=== PATIENT | female | born 1990 | race Caucasian/White ===

== ENCOUNTER 2020-09-28 15:01 | Outpatient (CLI) | payer BC, SELFPAY | END 2020-09-28 15:02 | disposition home or self-care (01) | LOC: ANHCOVIDVC 15:01 | PROVIDERS: PCP Family Medicine | DX: Z23 Encounter for immunization (principal) | CPT/HCPCS: 0001A; 91300 ==

== ENCOUNTER 2020-10-19 15:14 | Outpatient (CLI) | payer BC, SELFPAY | END 2020-10-19 15:15 | disposition home or self-care (01) | LOC: ANHCOVIDVC 15:14 | PROVIDERS: PCP Family Medicine | DX: Z23 Encounter for immunization (principal) | CPT/HCPCS: 0002A; 91300 ==

== ENCOUNTER 2021-08-25 08:27 | Outpatient (CLI) | payer OTHER, SELFPAY ==
[2021-08-25 09:18] LABS: Basophils Absolute Auto 0.1 K/mm3 (0.0-0.1); Basophils Percent Auto 0.5 % (0.2-1.2); Eosinophils Absolute Auto 0.2 K/mm3 (0-0.3); Eosinophils Percent Auto 2.3 % (0-4.4); Hematocrit 44.4 % (37.0-47.0); Hemoglobin 14.1 g/dL (12.0-15.0); Immature Granulocyte Absolute 0.03 K/mm3 (0.00-0.031); Immature Granulocyte Percent A 0.3 % (0-0.5); Lymphocytes Absolute Auto 2.43 K/mm3 (0.9-3.2); Lymphocytes Percent Auto 25.3 % (18.3-44.2); Mean Corpuscular HGB Conc 31.8 g/dl (32-36); Mean Corpuscular Volume 91.2 fl (80-100); Mean Platelet Volume 9.3 fl (7.4-10.4); Monocytes Absolute Auto 0.6 K/mm3 (0.1-0.6); Monocytes Percent Auto 6.2 % (2.6-8.5); Neutrophils Absolute Auto 6.3 K/mm3 (1.3-6.7); Neutrophils Percent Auto 65.4 % (45.5-73.1); Platelet Count Result 305 k/mm3 (150-375); Red Blood Count 4.87 M/mm3 (4.2-5.4); Red Cell Distribution Width 12.2 % (11.5-14.5); White Blood Count 9.6 K/mm3 (4.5-10.0)
[2021-08-25 09:54] LABS: Alanine Aminotransferase 20 U/L (4-35); Albumin Level 4.3 g/dL (3.5-5.1); Alkaline Phosphatase 74 U/L (38-126); Anion Gap 7 mmol/L (8-16); Aspartate Amino Transferase 27 U/L (14-36); Bilirubin,Total 0.3 mg/dL (0.2-1.3); Blood Urea Nitrogen 12 mg/dL (7-17); Calcium 9.1 mg/dL (8.4-10.2); Carbon Dioxide 28 mmol/L (22-30); Chloride 105 mmol/L (98-107); Estimated Glomerular Filt Rate > 60; Glucose 104 mg/dL (65-110); Potassium 4.2 mmol/L (3.4-5.0); Sodium 140 mmol/L (137-145)
[2021-08-27 13:16] LABS: NIL 0.01 IU/mL; Quantiferon TB Plus, 1T NEGATIVE (NEGATIVE)
== END 2021-08-25 08:28 | disposition home or self-care (01) ==
PROVIDERS: PCP Family Medicine
DX: L73.2 Hidradenitis suppurativa (principal); Z79.899 Other long term (current) drug therapy
CPT/HCPCS: 36415; 80053; 85025; 86480

== ENCOUNTER 2021-10-10 14:02 | Outpatient (CLI) | payer OTHER, SELFPAY ==
[2021-10-10 15:58] LABS: Appearance Urine Cloudy (Clear); Bilirubin Urine Negative (Negative); Blood Urine Negative (Negative); Color Urine Yellow (Yellow); Glucose Urine UA Negative (Negative); Ketones Urine Negative (Negative); Leukocyte Esterase Ur Trace LEU/UL (NEGATIVE); Nitrate Urine Negative (Negative); Protein Urine Negative (Negative); Specific Grav Ur >= 1.030 (1.001-1.035); Urobilinogen Urine 0.2 mg/dL (<2.0); pH Urine 5.5 (5.0-9.0)
[2021-10-10 16:01] LABS: Bacteria Urine Trace /hpf; Squamous Epithelial Cell Urine Many /hpf (Few); WBC Urine 51-75 /hpf (0-3)
[2021-10-10 16:15] LABS: Add Urine Microscopic? YES
== END 2021-10-10 14:03 | disposition home or self-care (01) ==
LOC: ANHLAB 14:04
PROVIDERS: PCP Family Medicine; Visit Provider Family Medicine
DX: R30.0 Dysuria (principal)
CPT/HCPCS: 81001; 87077; 87086; 87186

== ENCOUNTER 2022-06-16 12:41 | Outpatient (CLI) | payer OTHER, SELFPAY ==
[2022-06-16 14:13] LABS: Add Urine Microscopic? YES; Appearance Urine Slightly Cloudy (Clear); Bilirubin Urine Negative (Negative); Blood Urine Trace-Intact (Negative); Color Urine Yellow (Yellow); Glucose Urine UA Negative (Negative); Ketones Urine Negative (Negative); Leukocyte Esterase Ur Trace LEU/UL (Negative); Nitrate Urine Negative (Negative); Protein Urine Trace mg/dL (Negative); Specific Grav Ur >= 1.030 (1.001-1.035); Urobilinogen Urine 0.2 mg/dL (<2.0)
[2022-06-16 14:22] LABS: Bacteria Urine Trace /hpf; Mucus Urine Rare /lpf; Squamous Epithelial Cell Urine Many /hpf (Few); WBC Urine 51-75 /hpf
== END 2022-06-16 12:42 | disposition home or self-care (01) ==
LOC: ANHLAB 12:44
PROVIDERS: PCP Family Medicine; Visit Provider Physician Assistant
DX: R30.0 Dysuria (principal)
CPT/HCPCS: 81001; 87077; 87086; 87186

== ENCOUNTER 2022-08-01 09:03 | Outpatient (CLI) | payer OTHER, SELFPAY ==
[2022-08-01 12:24] LABS: Alanine Aminotransferase 37 U/L (6-35); Albumin Level 4.3 g/dL (3.5-5.1); Alkaline Phosphatase 76 U/L (38-126); Anion Gap 9 mmol/L (8-16); Aspartate Amino Transferase 46 U/L (14-36); Bilirubin,Total 0.5 mg/dL (0.2-1.3); Blood Urea Nitrogen 14 mg/dL (7-17); Carbon Dioxide 25 mmol/L (22-30); Chloride 103 mmol/L (98-107); Estimated Glomerular Filt Rate > 60; Glucose 88 mg/dL (65-110); Sodium 137 mmol/L (137-145)
[2022-08-01 12:31] LABS: Hemoglobin A1C 5.5 % (<5.7)
[2022-08-01 12:49] LABS: Hepatitis B Surface Antigen Negative (Negative)
[2022-08-01 12:59] LABS: HIV 1/2 Ab P24 Ag Result Negative (Negative)
[2022-08-01 13:07] LABS: Hepatitis C Virus Antibody Negative (Negative)
[2022-08-02 09:06] LABS: Rapid Plasma Reagin Non-Reactive (NonReactive)
[2022-08-05 04:25] LABS: FSH 7.2 mIU/mL (***); Progesterone 6.1 ng/mL (***)
[2022-08-07 11:29] LABS: Testosterone Total 53 ng/dL (2-45)
== END 2022-08-01 09:04 | disposition home or self-care (01) ==
LOC: ANHLAB 09:05
PROVIDERS: PCP Family Medicine; Visit Provider Obstetrics & Gynecology
DX: E28.2 Polycystic ovarian syndrome (principal); Z30.09 Encounter for other general counseling and advice on contraception
CPT/HCPCS: 36415; 80053; 83001; 83002; 83036; 83525; 84144; 84403; 84436; 84443; 86592; 86703; 86803; 87340; G0432

== ENCOUNTER 2022-08-04 16:11 | Outpatient (CLI) | payer OTHER, SELFPAY ==
--- NOTE | ~2022-08-04 | US_ITS ---
EXAMINATION: US pelvic complete w TV DATE: 08/04/2022 17:08 INDICATION: Pelvic and perineal pain. TECHNIQUE: Multiple transabdominal and transvaginal sonographic images of the pelvis were obtained. COMPARISON: None. FINDINGS: TRANSABDOMINAL ULTRASOUND: The uterus measures 6.4 x 3.6 x 3.7 cm. There is no free fluid in the pelvis. TRANSVAGINAL ULTRASOUND: The endometrial complex measures 7 mm in thickness. There is a 3.3 cm intramural fibroid in the fundu s. The right ovary measures 2.4 x 2.4 x 1.9 cm. The left ovary measures 3.1 x 3.1 x 2.5 cm. There is normal vascular flow in the ovaries. IMPRESSION: 1. Uterine fibroid. Reviewed, dictated and finalized at location A. NISATIONAL PSYCHOLOGIST IMPRESSION: 1. Uterine fibroid.
== END 2022-08-04 16:12 | disposition home or self-care (01) ==
LOC: ANHIMG 16:15
PROVIDERS: PCP Family Medicine; Visit Provider Obstetrics & Gynecology
DX: R10.2 Pelvic and perineal pain (principal); D25.9 Leiomyoma of uterus, unspecified
CPT/HCPCS: 76830; 76856

== ENCOUNTER 2022-08-07 15:40 | Outpatient (CLI) | payer OTHER, SELFPAY ==
--- NOTE | ~2022-08-07 | US_ITS ---
EXAMINATION: US abdomen complete DATE: 08/07/2022 16:05 INDICATION: Elevated liver enzymes. TECHNIQUE: Multiple grayscale and Doppler ultrasound images of the abdomen were obtained. COMPARISON: None available. FINDINGS: The visualized portions of the pancreas are normal. The liver is normal with normal echogen icity and echotexture. No surface nodularity. Normal hepatopetal flow in the main portal vein. The ga llbladder is normal with no abnormal wall thickening, pericholecystic fluid or stones. The common daniel e duct measures 5 mm. There was no sonographic Roldan sign. The visualized portions of the aorta and inferior vena cava are normal. The right kidney measures 10.3 x 4.7 x 4.6 cm. The left kidney measures 10.6 x 5.3 x 4.7. The kidneys demonstrate normal parenchymal echogenicity. There is no hydronephrosis. The spleen is normal in heriberto earance and measures 11.0 cm. IMPRESSION: Normal abdominal ultrasound findings. Reviewed, dictated and finalized at location K. [employer]
== END 2022-08-07 15:41 | disposition home or self-care (01) ==
LOC: ANHIMG 15:43
PROVIDERS: PCP Family Medicine; Visit Provider Physician Assistant
DX: R79.89 Other specified abnormal findings of blood chemistry (principal)
CPT/HCPCS: 76700

== ENCOUNTER 2022-08-09 09:30 | Outpatient (CLI) | payer OTHER, SELFPAY ==
[2022-08-10 12:21] LABS: White Blood Count 10.4 K/mm3 (4.5-10.0)
[2022-08-10 12:22] LABS: Hematocrit 44.6 % (37.0-47.0); Hemoglobin 14.7 g/dL (12.0-15.0); Platelet Count Result 295 k/mm3 (150-375); Red Blood Count 5.07 M/mm3 (4.2-5.4); Red Cell Distribution Width 12.7 % (11.5-14.5)
[2022-08-10 12:23] LABS: Mean Platelet Volume 9.7 fl (7.4-10.4)
[2022-08-10 12:58] LABS: Alanine Aminotransferase 28 U/L (6-35); Albumin Level 4.2 g/dL (3.5-5.1); Alkaline Phosphatase 64 U/L (38-126); Anion Gap 7 mmol/L (8-16); Aspartate Amino Transferase 27 U/L (14-36); Bilirubin,Total 0.6 mg/dL (0.2-1.3); Blood Urea Nitrogen 12 mg/dL (7-17); Carbon Dioxide 27 mmol/L (22-30); Chloride 106 mmol/L (98-107); Cholesterol 212 mg/dL (0-200); Estimated Glomerular Filt Rate > 60; Glucose 96 mg/dL (65-110); HDL Direct 30 mg/dL; Potassium 4.1 mmol/L (3.4-5.0); Sodium 140 mmol/L (137-145); Triglycerides 105 mg/dL (<150)
[2022-08-10 13:10] LABS: LDL Cholesterol Direct 142 mg/dL
[2022-08-10 13:11] LABS: Hemoglobin A1C 5.5 % (<5.7)
[2022-08-10 13:15] LABS: Free T4 Free Thyroxine 1.18 ng/mL (0.78-2.19)
== END 2022-08-10 12:15 | disposition home or self-care (01) ==
LOC: ANHLAB 08-28 10:57
PROVIDERS: PCP Family Medicine; Visit Provider Physician Assistant
DX: Z00.00 Encounter for general adult medical examination without abnormal findings (principal); R53.83 Other fatigue; E28.2 Polycystic ovarian syndrome; Z13.1 Encounter for screening for diabetes mellitus; Z13.220 Encounter for screening for lipoid disorders
CPT/HCPCS: 36415; 80053; 80061; 83036; 84439; 84443; 85027

== ENCOUNTER 2022-08-16 14:05 | Outpatient (CLI) | payer OTHER, SELFPAY ==
[2022-08-16 17:14] LABS: Hepatitis B Surface Antigen Negative (Negative)
[2022-08-16 17:31] LABS: Hepatitis C Virus Antibody Negative (Negative)
== END 2022-08-16 14:06 | disposition home or self-care (01) ==
LOC: ANHLAB 14:08
PROVIDERS: PCP Family Medicine; Visit Provider Obstetrics & Gynecology
DX: R79.89 Other specified abnormal findings of blood chemistry (principal)
CPT/HCPCS: 36415; 86803; 87340

== ENCOUNTER 2022-11-16 09:37 | Outpatient (CLI) | payer OTHER, SELFPAY ==
[2022-11-16 10:42] LABS: Add Urine Microscopic? YES; Appearance Urine Cloudy (Clear); Bacteria Urine 2+ /hpf; Bilirubin Urine Negative (Negative); Blood Urine 3+ (Negative); Color Urine Yellow (Yellow); Glucose Urine UA Negative (Negative); Ketones Urine Negative (Negative); Leukocyte Esterase Ur 3+ LEU/UL (Negative); Need Manual Microscopic Reviewed; Nitrate Urine Negative (Negative); Non Pathogenic Casts 0-2; Protein Urine 1+ mg/dL (Negative); RBC Urine >100 /hpf (0-2); Specific Grav Ur 1.014 (1.001-1.035); Squamous Epithelial Cell Urine None seen /hpf (Few); Urobilinogen Urine 0.2 mg/dL (<2.0); WBC Urine >100 /hpf; pH Urine 5.5 (5.0-9.0)
== END 2022-11-16 09:38 | disposition home or self-care (01) ==
PROVIDERS: PCP Family Medicine; Visit Provider Internal Medicine Hematology & Oncology
DX: R30.0 Dysuria (principal)
CPT/HCPCS: 81001; 87077; 87086; 87186

== ENCOUNTER 2023-04-12 08:04 | Outpatient (CLI) | payer OTHER, SELFPAY ==
[2023-04-12 08:20] LABS: Basophils Percent Auto 0.3 % (0.2-1.2); Eosinophils Absolute Auto 0.3 K/mm3 (0-0.3); Eosinophils Percent Auto 2.7 % (0-4.4); Hematocrit 45.1 % (37.0-47.0); Hemoglobin 15.1 g/dL (12.0-15.0); Immature Granulocyte Absolute 0.02 K/mm3 (0.00-0.031); Immature Granulocyte Percent A 0.2 % (0-0.5); Lymphocytes Absolute Auto 2.44 K/mm3 (0.9-3.2); Lymphocytes Percent Auto 25.5 % (18.3-44.2); Mean Corpuscular HGB Conc 33.5 g/dl (32-36); Mean Corpuscular Hemoglobin 28.9 pg (26-34); Mean Corpuscular Volume 86.4 fl (80-100); Mean Platelet Volume 9.1 fl (7.4-10.4); Monocytes Absolute Auto 0.5 K/mm3 (0.1-0.6); Monocytes Percent Auto 4.7 % (2.6-8.5); Neutrophils Absolute Auto 6.4 K/mm3 (1.3-6.7); Neutrophils Percent Auto 66.6 % (45.5-73.1); Platelet Count Result 294 k/mm3 (150-375); Red Blood Count 5.22 M/mm3 (4.2-5.4); Red Cell Distribution Width 12.4 % (11.5-14.5); White Blood Count 9.6 K/mm3 (4.5-10.0)
[2023-04-12 10:34] LABS: Alanine Aminotransferase 22 U/L (6-35); Albumin Level 4.1 g/dL (3.5-5.1); Alkaline Phosphatase 67 U/L (38-126); Anion Gap 6 mmol/L (8-16); Aspartate Amino Transferase 22 U/L (14-36); Bilirubin,Total 0.7 mg/dL (0.2-1.3); Blood Urea Nitrogen 12 mg/dL (7-17); Calcium 9.5 mg/dL (8.4-10.2); Carbon Dioxide 28 mmol/L (22-30); Chloride 102 mmol/L (98-107); Cholesterol 207 mg/dL (0-200); Estimated Glomerular Filt Rate > 60; Glucose 104 mg/dL (65-110); HDL Direct 40 mg/dL; Potassium 4.1 mmol/L (3.4-5.0); Sodium 136 mmol/L (137-145); Triglycerides 98 mg/dL (<150)
[2023-04-12 10:45] LABS: LDL Cholesterol Direct 123 mg/dL
[2023-04-12 13:05] LABS: Hemoglobin A1C 5.5 % (<5.7)
[2023-04-16 08:07] LABS: Iron 147 ug/dL (37-170)
[2023-04-16 08:16] LABS: Percent Iron Saturation 45 % (20-50)
== END 2023-04-12 08:05 | disposition home or self-care (01) ==
PROVIDERS: PCP Family Medicine; Visit Provider Internal Medicine Hematology & Oncology
DX: R53.83 Other fatigue (principal); Z83.3 Family history of diabetes mellitus; E28.2 Polycystic ovarian syndrome; E78.2 Mixed hyperlipidemia; D58.2 Other hemoglobinopathies
CPT/HCPCS: 36415; 80053; 80061; 82728; 83036; 83540; 83550; 84443; 85025

== ENCOUNTER 2023-04-23 02:46 | Day surgery (SDC) | payer OTHER, SELFPAY ==
[2023-04-18 12:03] VITALS: BMI 43.0
--- NOTE | 2023-04-18 12:09 | PC.NURSE ---
Report to the Outpatient Waiting Room, entrance under the green pavilion located off [facility], at time 0615 on date 04/23/23. Planned Procedure Time: 0815. Time changes happen often and if your time is changed the preop area will call you the afternoon before. - You and your visitor will be asked to self-screen and do not enter if you have any COVID symptoms. - A mask is optional within the hospital at this time. Patients may have clear liquids (water, carbonated beverages, clear teas, apple juice) until 3 hours prior to surgery with a maximum of 20 ounces. - No food from midnight until time of surgery Take the following medications with a SIP of water the morning of surgery: ANTIBIOTIC, VENLAFAXINE DO NOT STOP ANY OF YOUR OTHER PRESCRIPTION MEDICATIONS PRIOR TO SURGERY ?EXCEPT THE FOLLOWING Medications to discontinue per physician: N/A Date to take last dose: N/A Please no make-up, nail gambian, hairspray, perfume, deodorant, or body powder the day of surgery. No jewelry (including any body piercings) or valuables the day of surgery, leave them at home. Please take a shower or bath the night before, or the morning of, surgery with an antibacterial soap. Wear comfortable, loose fitting clothing. - Jewelry must be removed prior to entering the operating room. Rings and piercings that are not removed may be cut off. - The hospital will not accept responsibility for valuables. - Please leave all valuables, including medications, at home the day of surgery. If you are going home after surgery, a licensed dinkey driver must drive you home. - NO public transportation without another adult if you receive anesthesia. - We recommend that an adult stay with you for 24 hours following discharge. - We also recommend that you do not drive, make important decision, drink alcoholic beverages, or take any drugs that were not prescribed by your health care provider for at least 24 hours after your discharge time. Follow any additional instructions given to you from your surgeon. If you or anyone in your household have experienced Covid symptoms in the past week, please notify your surgeon or the nurse liaison at the phone number below for possible testing. Telephone instructions given to PT - CHRISTINE CAMPBELL and asked if any additional questions and then verbalized understanding. Patient advised to call surgeon office or pre surgery nurse liaison [phone] if any additional questions.
--- NOTE | 2023-04-19 08:56 | PM.HPGS ---
History of Present Illness History of Present Illness Consent: Risks, benefits, and alternatives have been discussed and questions answered. Patient agrees to proceed with procedure. Chief complaint: otitis media Narrative: Mariza Cam is a 32 year old female has a retained tube in the right ear that needs to be removed and possible placement Review of Systems Review of Systems: All systems reviewed & are unremarkable except as noted in HPI and below PMFSH Past Medical History Medical History Anxiety Cyst of ovary Depression Essential hypertension FH: diabetes mellitus Hidradenitis suppurativa IBS (irritable bowel syndrome) PCOS (polycystic ovarian syndrome) Surgical History Surgical History History of placement of ear tubes S/P removal of ovarian cyst Family History Family History Father Hypertension Diabetes mellitus Mother Hypertension Hypothyroidism Grandparent Colon cancer Skin cancer Other Cerebrovascular accident Social History Social History Social History: Caffeine- coffee Smoking status: Never smoker Second hand tobacco smoke exposure: No Alcohol intake: current Alcohol use details: RARE Substance use: current Substance use type: marijuana Other substance usage details: RARE Lack of Transportation: No Lack of Food: Never True Current Housing: I Have Housing Concerned About Future Housing: No Difficulty Paying Gas/Electric Bills: No Difficulty Paying for Meds: No Currently Unemployed: No Education: Associate Degree Difficulty w/ Childcare or Family Care: No Living arrangements: with family Gender identity (if verbalized by the patient): Female Spiritual care concerns: No Comments will remove the tube in the right ear and place a patch if necessar Meds Home Medications and Allergies Home Medications Medication Instructions Recorded Confirmed Type cephalexin 250 mg capsule 250 mg PO Q8H 10 days #30 caps 04/11/23 04/18/23 Rx sumatriptan succinate 50 mg tablet See Rx Instructions PO .COMPLEX #9 04/11/23 04/18/23 Rx (Imitrex) tabs venlafaxine 75 mg capsule,extended 75 mg PO DAILY #90 caps 04/11/23 04/18/23 Rx release 24 hr Allergies Allergy/AdvReac Type Severity Reaction Status Date / Time azithromycin [From Zithromax] Allergy Mild Rash Verified 04/18/23 12:03 levofloxacin [From Levaquin] Allergy Mild Diarrhea Verified 04/18/23 12:03 Sulfa (Sulfonamide Allergy Mild RASH Verified 04/18/23 12:03 Antibiotics) Exam Narrative: prolonged tube on the right side Assessment and Plan Assessment and plan (1) Chronic otitis media: Qualifiers: Laterality: right Code(s): H66.90 - Otitis media, unspecified, unspecified ear Status: Acute Plan has a prolonged tube in the right side for removed
--- NOTE | 2023-04-23 05:37 | WPDHPUPDATE1 ---
History and Physical Update Update Date/Time: 04/23/23 05:37 History and Physical has been reviewed, including an updated exam of the patient. There are NO changes in the patient's condition. Risks, benefits, and alternatives have been discussed and questions answered. Patient agrees to proceed with procedure.
[2023-04-23] MEDS: LACTATED RINGERS 1,000 ML 30 ML IV CONT (06:30)
[2023-04-23 07:00] VITALS: BP 152/91; PULSE 70; RESP 16; TEMP 36.4; O2SAT 99
[2023-04-23] MEDS: SCOPOLAMINE 1.5 MG PATCH TRANSDERM (07:51)
--- NOTE | 2023-04-23 07:51 | WPDANESEPPF ---
Anes - Initial Pre Proc Eval Procedure: Operation Date: 04/23/23 08:15 Proposed Procedures p Removal Right Myringotomy Tube, Right Myringoplasty - Awais Meadows MD Date/Time: 04/23/23 07:51 Surgeon: Awais Meadows MD Pre Op Diagnosis: otitis media Patient Data Age: 32 Gender: F Height: 1.61 m Weight: 111.15 kg Allergies Allergy/AdvReac Type Severity Reaction Status Date / Time azithromycin [From Zithromax] Allergy Mild Rash Verified 04/18/23 12:03 levofloxacin [From Levaquin] Allergy Mild Diarrhea Verified 04/18/23 12:03 Sulfa (Sulfonamide Allergy Mild RASH Verified 04/18/23 12:03 Antibiotics) Home Medications Medication Instructions Recorded Confirmed Type sumatriptan succinate 50 mg tablet See Rx Instructions PO .COMPLEX #9 04/11/23 04/18/23 Rx (Imitrex) tabs venlafaxine 75 mg capsule,extended 75 mg PO DAILY #90 caps 04/11/23 04/18/23 Rx release 24 hr Patient hx anesthesia problems: none Family hx anesthesia problems: none Results Review: All pre-operative results and documents have been reviewed as part of the pre-operative evaluation. [facility] Past Medical History Medical History Anxiety Cyst of ovary Depression Essential hypertension FH: diabetes mellitus Hidradenitis suppurativa IBS (irritable bowel syndrome) PCOS (polycystic ovarian syndrome) Surgical History Surgical History History of placement of ear tubes S/P removal of ovarian cyst Family History Family History Father Hypertension Diabetes mellitus Mother Hypertension Hypothyroidism Grandparent Colon cancer Skin cancer Other Cerebrovascular accident Social History Social History Social History: Caffeine- coffee Smoking status: Never smoker Second hand tobacco smoke exposure: No Alcohol intake: current Alcohol use details: RARE Substance use: current Substance use type: marijuana Other substance usage details: RARE Lack of Transportation: No Lack of Food: Never True Current Housing: I Have Housing Concerned About Future Housing: No Difficulty Paying Gas/Electric Bills: No Difficulty Paying for Meds: No Currently Unemployed: No Education: Associate Degree Difficulty w/ Childcare or Family Care: No Living arrangements: with family Gender identity (if verbalized by the patient): Female Spiritual care concerns: No Anes - Eval Final PreProcedure Day of Procedure 04/23/23 07:51 Patient weight: morbidly obese Heart: regular rate and rhythm Lungs: clear to auscultation Airway: Mallampati scale class III Neurological: alert and oriented Last oral intake: >/= 8 hours Emergent: no Anesthetic plan: proceed Anesthesia type and monitoring: general Results Review: All pre-operative results and documents have been reviewed as part of the pre-operative evaluation. Informed Consent: The patient's anesthetic plan and its attendant risks and benefits were discussed with the patient/family/POA. Questions were solicited and answers provided to the satisfaction of the patient/family/POA.
--- NOTE | 2023-04-23 07:56 | WPDHPUPDATE1 ---
History and Physical Update Update Date/Time: 04/23/23 07:56 History and Physical has been reviewed, including an updated exam of the patient. There are NO changes in the patient's condition. Risks, benefits, and alternatives have been discussed and questions answered. Patient agrees to proceed with procedure.
--- NOTE | 2023-04-23 08:22 | WPDHPUPDATE1 ---
History and Physical Update Update Date/Time: 04/23/23 08:22 History and Physical has been reviewed, including an updated exam of the patient. There are NO changes in the patient's condition. Risks, benefits, and alternatives have been discussed and questions answered. Patient agrees to proceed with procedure.
--- NOTE | 2023-04-23 08:23 | P.HP_ITS ---
History of Present Illness History of Present Illness Consent: Risks, benefits, and alternatives have been discussed and questions answered. Patient agrees to proceed with procedure. Chief complaint: otitis media Narrative: Mariza Cam is a 32 year old female COUNTS INCLUDE 234 BEDS AT THE [facility] Past Medical History Medical History Anxiety Cyst of ovary Depression Essential hypertension FH: diabetes mellitus Hidradenitis suppurativa IBS (irritable bowel syndrome) PCOS (polycystic ovarian syndrome) Surgical History Surgical History History of placement of ear tubes S/P removal of ovarian cyst Family History Family History Father Hypertension Diabetes mellitus Mother Hypertension Hypothyroidism Grandparent Colon cancer Skin cancer Other Cerebrovascular accident Social History Social History Social History: Caffeine- coffee Smoking status: Never smoker Second hand tobacco smoke exposure: No Alcohol intake: current Alcohol use details: RARE Substance use: current Substance use type: marijuana Other substance usage details: RARE Lack of Transportation: No Lack of Food: Never True Current Housing: I Have Housing Concerned About Future Housing: No Difficulty Paying Gas/Electric Bills: No Difficulty Paying for Meds: No Currently Unemployed: No Education: Associate Degree Difficulty w/ Childcare or Family Care: No Living arrangements: with family Gender identity (if verbalized by the patient): Female Spiritual care concerns: No Meds Home Medications and Allergies Home Medications Medication Instructions Recorded Confirmed Type sumatriptan succinate 50 mg tablet See Rx Instructions PO .COMPLEX #9 04/11/23 04/18/23 Rx (Imitrex) tabs venlafaxine 75 mg capsule,extended 75 mg PO DAILY #90 caps 04/11/23 04/18/23 Rx release 24 hr cephalexin 250 mg capsule 250 mg PO BID 04/23/23 04/23/23 History Allergies Allergy/AdvReac Type Severity Reaction Status Date / Time azithromycin [From Zithromax] Allergy Mild Rash Verified 04/23/23 07:52 Sulfa (Sulfonamide Allergy Mild RASH Verified 04/23/23 07:52 Antibiotics) levofloxacin [From Levaquin] AdvReac Mild Diarrhea Verified 04/23/23 08:09 Vital Signs Vital Signs - 24 hr 04/23/23 07:00 Temperature 36.4 C L Pulse Rate 70 Respiratory Rate 16 Blood Pressure 152/91 H Pulse Oximetry 99 Oxygen Delivery Room Air Assessment and Plan Assessment and plan (1) Chronic otitis media of right ear: Code(s): H66.91 - Otitis media, unspecified, right ear Status: Acute Plan Patient was prepped and draped fashion general anesthesia the tube was removed and a patch placed on the tube
--- NOTE | 2023-04-23 08:28 | W.PM.PROC2 ---
Procedure Note - Detailed Date of Procedure 04/23/23 Pre-op Diagnosis otitis media Post-op Diagnosis Same Procedure Performed Removal tube with placement of paper patch Surgeon Awais Meadows MD Anesthesia General Description of Procedure Tube was removed and epi disc placed in Drains No Packing No Pathology None sent Complications No immediate complications Condition Stable Disposition PACU
[2023-04-23 08:29] VITALS: BP 153/76; PULSE 86; RESP 18; O2SAT 96
[2023-04-23 08:55] VITALS: BP 119/73; PULSE 88; RESP 20
[2023-04-23 09:25] VITALS: BP 119/73; PULSE 80; RESP 20
== END 2023-04-23 09:31 | disposition home or self-care (01) ==
PROVIDERS: PCP Family Medicine; Visit Provider Otolaryngology
PROC: (CPT 69424; principal; 2023-04-23 08:15)
DX: H66.91 Otitis media, unspecified, right ear (principal); F41.9 Anxiety disorder, unspecified; F32.A Depression, unspecified; E66.01 Morbid (severe) obesity due to excess calories; Z68.41 Body mass index [BMI] 40.0-44.9, adult; Z79.899 Other long term (current) drug therapy; F12.90 Cannabis use, unspecified, uncomplicated
CPT/HCPCS: 69610; A9270; C1763; J2250; J2405; J2704; J3010; J7120

== ENCOUNTER 2023-05-31 10:52 | Outpatient (CLI) | payer OTHER, SELFPAY ==
[2023-05-31 11:48] LABS: Appearance Urine Clear (Clear); Bilirubin Urine Negative (Negative); Blood Urine Negative (Negative); Color Urine Yellow (Yellow); Glucose Urine UA Negative (Negative); Ketones Urine Negative (Negative); Leukocyte Esterase Ur Negative LEU/UL (Negative); Nitrate Urine Negative (Negative); Protein Urine Negative (Negative); Specific Grav Ur 1.023 (1.001-1.035); Urobilinogen Urine 0.2 mg/dL (<2.0); pH Urine 5.5 (5.0-9.0)
[2023-05-31 11:55] LABS: Add Urine Microscopic? NO
== END 2023-05-31 10:53 | disposition home or self-care (01) ==
LOC: ANHLAB 10:54
PROVIDERS: Physician Assistant; PCP Family Medicine; Visit Provider Internal Medicine Hematology & Oncology
DX: R30.0 Dysuria (principal)
CPT/HCPCS: 81003

== ENCOUNTER 2023-06-01 12:09 | Outpatient (CLI) | payer OTHER, SELFPAY ==
[2023-06-01 12:24] LABS: Basophils Absolute Auto 0.1 K/mm3 (0.0-0.1); Basophils Percent Auto 0.5 % (0.2-1.2); Eosinophils Absolute Auto 0.2 K/mm3 (0-0.3); Hematocrit 46.5 % (37.0-47.0); Hemoglobin 15.5 g/dL (12.0-15.0); Immature Granulocyte Absolute 0.04 K/mm3 (0.00-0.031); Immature Granulocyte Percent A 0.4 % (0-0.5); Lymphocytes Absolute Auto 2.97 K/mm3 (0.9-3.2); Lymphocytes Percent Auto 27.5 % (18.3-44.2); Mean Corpuscular HGB Conc 33.3 g/dl (32-36); Mean Corpuscular Hemoglobin 28.8 pg (26-34); Mean Corpuscular Volume 86.3 fl (80-100); Mean Platelet Volume 9.2 fl (7.4-10.4); Monocytes Absolute Auto 0.5 K/mm3 (0.1-0.6); Monocytes Percent Auto 4.3 % (2.6-8.5); Neutrophils Absolute Auto 7.1 K/mm3 (1.3-6.7); Neutrophils Percent Auto 65.3 % (45.5-73.1); Platelet Count Result 278 k/mm3 (150-375); Red Blood Count 5.39 M/mm3 (4.2-5.4); Red Cell Distribution Width 12.7 % (11.5-14.5); White Blood Count 10.8 K/mm3 (4.5-10.0)
[2023-06-01 12:43] LABS: Alanine Aminotransferase 28 U/L (6-35); Albumin Level 4.4 g/dL (3.5-5.1); Alkaline Phosphatase 79 U/L (38-126); Anion Gap 8 mmol/L (8-16); Aspartate Amino Transferase 29 U/L (14-36); Bilirubin,Total 0.8 mg/dL (0.2-1.3); Blood Urea Nitrogen 11 mg/dL (7-17); Calcium 9.5 mg/dL (8.4-10.2); Carbon Dioxide 27 mmol/L (22-30); Chloride 102 mmol/L (98-107); Estimated Glomerular Filt Rate > 60; Glucose 100 mg/dL (65-110); Potassium 3.7 mmol/L (3.4-5.0); Sodium 137 mmol/L (137-145)
== END 2023-06-01 12:10 | disposition home or self-care (01) ==
LOC: ANHLAB 12:11
PROVIDERS: Physician Assistant Medical; PCP Family Medicine; Visit Provider Internal Medicine Hematology & Oncology
DX: R53.83 Other fatigue (principal); E78.2 Mixed hyperlipidemia
CPT/HCPCS: 36415; 80053; 85025

== ENCOUNTER 2023-06-14 16:47 | Outpatient (CLI) | payer OTHER, SELFPAY ==
--- NOTE | ~2023-06-14 | US_ITS ---
EXAMINATION: US transvaginal DATE: 06/14/2023 17:30 INDICATION: Pelvic and perineal pain. TECHNIQUE: Multiple transvaginal sonographic images of the pelvis were obtained. COMPARISON: Ultrasound 08/04/2022 FINDINGS: The uterus measures 6.0 x 3.9 x 3.8 cm. There is no free fluid in the pelvis. The endometrial complex measures 6 mm in thickness. The right ovary measures 3.8 x 2.1 x 2.6 cm. There is normal vascular fl ow in right ovary. The left ovary is not visualized.. IMPRESSION: 1. Normal uterus and right ovary. Left ovary not visualized. Reviewed, dictated and finalized at location E. [facility]
== END 2023-06-14 16:48 | disposition home or self-care (01) ==
PROVIDERS: PCP Family Medicine; Visit Provider Physician Assistant Medical
DX: E28.2 Polycystic ovarian syndrome (principal); R10.2 Pelvic and perineal pain
CPT/HCPCS: 76830

== ENCOUNTER 2024-07-03 08:08 | Outpatient (CLI) | payer OTHER, SELFPAY ==
[2024-07-03 10:37] LABS: Alanine Aminotransferase 18 U/L (6-35); Albumin Level 3.9 g/dL (3.5-5.1); Alkaline Phosphatase 71 U/L (38-126); Anion Gap 10 mmol/L (4-12); Aspartate Amino Transferase 19 U/L (14-36); Bilirubin,Total 0.5 mg/dL (0.2-1.3); Blood Urea Nitrogen 16 mg/dL (7-17); Calcium 9.3 mg/dL (8.4-10.2); Carbon Dioxide 25 mmol/L (22-30); Chloride 102 mmol/L (98-107); Cholesterol 208 mg/dL (0-200); Estimated Glomerular Filt Rate > 60; Glucose 104 mg/dL (65-110); HDL Direct 39 mg/dL; Potassium 4.4 mmol/L (3.4-5.0); Sodium 137 mmol/L (137-145); Triglycerides 119 mg/dL (<150)
[2024-07-03 10:48] LABS: LDL Cholesterol Direct 125 mg/dL
[2024-07-03 13:09] LABS: Hemoglobin A1C 5.9 % (<5.7)
== END 2024-07-03 08:09 | disposition home or self-care (01) ==
LOC: ANHLAB 08:14
PROVIDERS: Student in an Organized Health Care Education/Training Program; PCP Family Medicine; Visit Provider Internal Medicine Hematology & Oncology
DX: R53.83 Other fatigue (principal); I10 Essential (primary) hypertension; Z13.220 Encounter for screening for lipoid disorders; Z83.3 Family history of diabetes mellitus; E28.2 Polycystic ovarian syndrome; Z13.1 Encounter for screening for diabetes mellitus
CPT/HCPCS: 36415; 80053; 80061; 83036; 84439; 84443

== ENCOUNTER 2024-12-29 15:01 | Outpatient (CLI) | payer OTHER, SELFPAY ==
[2024-12-29 16:59] LABS: Free T4 Free Thyroxine 0.91 ng/dL (0.78-2.19)
[2024-12-29 17:11] LABS: Thyroid Stimulating Hormone 2.420 uIU/mL (0.465-4.680)
== END 2024-12-29 15:02 | disposition home or self-care (01) ==
PROVIDERS: Student in an Organized Health Care Education/Training Program; PCP Family Medicine
DX: R79.89 Other specified abnormal findings of blood chemistry (principal)
CPT/HCPCS: 36415; 84439; 84443